=== PATIENT | female | born 1980 | race Two or more races ===

== ENCOUNTER 2018-09-09 13:42 | Emergency (ER) | payer SELFPAY | END 2018-09-09 14:23 | disposition left against medical advice (07) | LOC: JER 13:42 ==

== ENCOUNTER 2018-10-19 10:01 | Emergency (ER) | payer OTHER ==
[2018-10-19 10:20] VITALS: TEMP 98.3; BMI 23.9
[2018-10-19] MEDS ORDERED: METOCLOPRAMIDE HCL INJECTION 10 MG/2 ML VIAL IVPB ONE (12:28)
[2018-10-19] MEDS ORDERED: PYRIDOXINE HCL (B-6) 50 MG TABLET (FP) PO ONE (12:29)
[2018-10-19] MEDS ORDERED: METOCLOPRAMIDE HCL INJECTION 10 MG/2 ML VIAL ONE (12:37)
[2018-10-19 13:15] LABS: BASO % 0.2 % (0-2.0); EOS % 0.4 % (0-4.5); HEMOGLOBIN 9.9 GM/dL (10.7-15.3); LYMPH % 12.3 % (8-40); MCH 32.9 pg (25.7-33.7); MCHC 34.3 g/dl (32.0-36.0); MEAN CELL VOLUME 96.1 fl (80-96); MEAN PLT VOLUME 8.4 fl (7.5-11.1); MONO % 5.8 % (3.8-10.2); NEUT % 81.3 % (42.8-82.8); PLATELET COUNT 261 K/MM3 (134-434); RBC 3.02 M/mm3 (3.60-5.2); RDW 13.3 % (11.6-15.6); WHITE BLOOD COUNT 14.2 K/mm3 (4.0-10.0)
[2018-10-19 13:24] LABS: URINE APPEARANCE CLEAR; URINE BILIRUBIN NEGATIVE (NEGATIVE); URINE COLOR YELLOW; URINE GLUCOSE (UA) NEGATIVE (NEGATIVE); URINE KETONE 1+ (NEGATIVE); URINE LEUK ESTERASE NEGATIVE (NEGATIVE); URINE NITRITE NEGATIVE (NEGATIVE); URINE PROTEIN NEGATIVE (NEGATIVE); URINE UROBILINOGEN 0.2 mg/dL (0.2-1.0)
[2018-10-19 13:45] LABS: ALBUMIN 3.2 g/dl (3.4-5.0); ALK PHOS 88 U/L (45-117); ANION GAP 10 MMOL/L (8-16); BILIRUBIN,TOTAL 0.3 mg/dL (0.2-1); BLOOD UREA NITROGEN 6.3 mg/dL (7-18); CALCIUM 8.5 mg/dL (8.5-10.1); CHLORIDE 106 mmol/L (98-107); CO2 22 mmol/L (21-32); CREATININE 0.4 mg/dL (0.55-1.3); GLUCOSE,RANDOM 73 mg/dL (74-106); POTASSIUM 3.7 mmol/L (3.5-5.1); SGOT/AST 23 U/L (15-37); SGPT/ALT 40 U/L (13-61); SODIUM 138 mmol/L (136-145); TOT PROT 6.7 g/dl (6.4-8.2)
[2018-10-19 14:12] LABS: LIPASE 101 U/L (73-393)
--- NOTE | 2018-10-19 14:50 | EKG ---
Test Reason : Blood Pressure : / mmHG Vent. Rate : 086 BPM Atrial Rate : 086 BPM P-R Int : 122 ms QRS Dur : 080 ms QT Int : 382 ms P-R-T Axes : 070 052 051 degrees QTc Int : 457 ms NORMAL SINUS RHYTHM NORMAL ECG NO PREVIOUS ECGS AVAILABLE Confirmed by ROSAURA JOHNSON, ABA ([id number]) on 10/19/2018 2:49:51 PM Referred By: Confirmed By:ABA KAPLAN MD
--- NOTE | 2018-10-19 15:24 | PDOC ---
Documentation entered by Rut Webber SCRIBE, acting as scribe for Sarbjit Hays MD. Sarbjit Hays MD: This documentation has been prepared by the Akbar canada Sammi, SCRIBE, under my direction and personally reviewed by me in its entirety. I confirm that the documentation accurately reflects all work, treatment, procedures, and medical decision making performed by me. History of Present Illness - General Chief Complaint: Pain, Acute Stated Complaint: 18 WK PREG / NOT FEELING WELL Time Seen by Provider: 10/19/18 10:51 - History of Present Illness Initial Comments: 10/19/18 12:47 The patient is a 38 year old, 18 weeks with twins female, with a significant PMH of gastritis, who presents to the emergency department for evaluation of 2 days of epigastric pain. The patient states she woke up yesterday morning with upper abdominal pain, which was not relieved when going to the bathroom. She describes the pain as dull, intermittently feels like there is "twisting." Denies dark stools. She was evaluated at Dr. Haywood (OB) office yesterday afternoon where an ultrasound was taken of the that was reportedly normal. She was prescribed famotidine which she took yesterday with little relief. As such, she went to [facility] ER last night where an US and UA were done that did not show acute findings (report provided). They advised that the patient come to [place] if the pain persists as we have OB specialists here. This morning, she continued to feel the dull epigastric pain and poor appetite prompting her to come here. She reports that she typically has BM daily, but has not had a BM today. The patient also reports a gradual onset headache this morning that has resolved after taking Fioricet at 11am which she has been taking for similar headaches (prescribed by Dr. Haywood). Denies SOB, CP, fever, chills, abd pain, vomiting or diarrhea, focal weakness/ numbness, or dizziness. OB: Dr. Sylvia Haywood Past History - Past Medical History Allergies/Adverse Reactions: Allergies Allergy/AdvReac Type Severity Reaction Status Date / Time No Known Allergies Allergy Verified 09/09/18 13:49 Home Medications: Ambulatory Orders Famotidine [Pepcid] 20 mg PO ASDIR 07/10/19 COPD: No - Immunization History Immunization Up to Date: Yes - Suicide/Smoking/Psychosocial Hx Smoking History: Unknown if ever smoked Hx Alcohol Use: No Drug/Substance Use Hx: No Review of Systems - Review of Systems Comments:: 10/19/18 12:48 GENERAL/CONSTITUTIONAL: No fever or chills. No weakness. HEAD, EYES, EARS, NOSE AND THROAT: No change in vision. No ear pain or discharge. No sore throat. GASTROINTESTINAL: (+)epigastric pain GENITOURINARY: No dysuria, frequency, or change in urination. CARDIOVASCULAR: No chest pain or shortness of breath. RESPIRATORY: No cough, wheezing, or hemoptysis. MUSCULOSKELETAL: No joint or muscle swelling or pain. No neck or back pain. SKIN: No rash NEUROLOGIC: No headache, vertigo, loss of consciousness, or change in strength/ sensation. ENDOCRINE: No increased thirst. No abnormal weight change. *Physical Exam - Vital Signs Last Vital Signs Temp Pulse Resp BP Pulse Ox 98.3 F 103 H 20 125/76 96 10/19/18 10:16 10/19/18 10:16 10/19/18 10:16 10/19/18 10:16 10/19/18 10:16 - Physical Exam Comments: 10/19/18 13:43 GENERAL: Awake, alert, and fully oriented, in no acute distress HEAD: No signs of trauma EYES: PERRLA, EOMI, sclera anicteric, conjunctiva clear ENT:Oropharynx clear without exudates. Moist mucosa NECK: Normal ROM, supple, no lymphadenopathy, JVD, or masses LUNGS: Breath sounds equal, clear to auscultation bilaterally. No wheezes, and no crackles HEART: Regular rate and rhythm, normal S1 and S2, no murmurs, rubs or gallops ABDOMEN: (+)epigastric tenderness to palpation. Gravid uterus consistent with dates. No other ttp in LUQ, RUQ, LLQ or RLQ. No CVAT. No rebound or guarding. EXTREMITIES: Normal range of motion, no edema. No clubbing or cyanosis. No cords , erythema, or tenderness BACK: No midline spinal tenderness in cervical/thoracic/lumbar region NEUROLOGICAL: Normal speech, cranial nerves intact, equal strength and sensation b/l. Normal gait. SKIN: Warm, Dry, normal turgor, no rashes or lesions noted. Heart Score/ECG Review #1 10/19/18 15:19 Twelve-lead EKG was performed and reviewed by me. Normal sinus rhythm, rate 86. Normal axis and intervals. No ST elevations. ED Treatment Course - LABORATORY CBC & Chemistry Diagram: 10/19/18 12:49 10/19/18 12:49 - ADDITIONAL ORDERS Additional order review: Laboratory Results 10/19/18 10/19/18 12:49 12:49 Sodium 138 Potassium 3.7 Chloride 106 Carbon Dioxide 22 Anion Gap 10 BUN 6.3 L Creatinine 0.4 L Est GFR (CKD-EPI)AfAm 154.22 Est GFR (CKD-EPI)NonAf 133.06 Random Glucose 73 L Calcium 8.5 Magnesium 2.0 Total Bilirubin 0.3 AST 23 ALT 40 Alkaline Phosphatase 88 Troponin I < 0.02 Total Protein 6.7 Albumin 3.2 L Lipase 101 Urine Color Yellow Urine Appearance Clear Urine pH 7.0 Ur Specific [place] 1.011 Urine Protein Negative Urine Glucose (UA) Negative Urine Ketones 1+ H Urine Blood Negative Urine Nitrite Negative Urine Bilirubin Negative Urine Urobilinogen 0.2 Ur Leukocyte Esterase Negative 10/19/18 12:49 RBC 3.02 L MCV 96.1 H MCHC 34.3 RDW 13.3 MPV 8.4 Neutrophils % 81.3 Lymphocytes % 12.3 Monocytes % 5.8 Eosinophils % 0.4 Basophils % 0.2 - Medications Given in the ED: ED Medications Discontinued Medications Generic Name Dose Route Start Last Admin Trade Name Freq PRN Reason Stop Dose Admin Metoclopramide HCl 10 mg 10/19/18 12:28 10/19/18 13:29 Reglan Injection - IVPB 10/19/18 12:29 10 mg ONCE ONE Administration Pyridoxine HCl 50 mg 10/19/18 12:29 10/19/18 13:29 Vitamin B6 - PO 10/19/18 12:30 50 mg ONCE ONE Administration Medical Decision Making - Medical Decision Making 10/19/18 15:19 38yo F currently presents to the ED with dull epigastric abd pain a/w poor appetite and nausea Vitals with mild tachycardia likely 2/2 dehydration Mild epigastric ttp DDx includes gastritis vs GERD vs enteritis vs pancreatitis Labs wnl Pt reports complete resolution of sxs with reglan IVPB and PO B6 Pt ate tray of food, is happy and eager to go home Will prescribe B6 and reglan as needed at home Pt to f/u with OB within 1 week I discussed the physical exam findings, ancillary test results and final diagnoses with the patient. I answered all of the patient's questions. The patient was satisfied with the care received and felt comfortable with the discharge plan and treatment plan. The patient will call their primary care physician within 24 hours to arrange follow-up and will return to the Emergency Department with any new, persistent or worsening symptoms. *DC/Admit/Observation/Transfer Diagnosis at time of Disposition: Abdominal pain during , Gastritis, Anorexia - Discharge Dispostion Disposition: HOME Condition at time of disposition: Improved Decision to Admit order: No - Referrals Referrals: Sylvia Haywood MD [Primary Care Provider] - - Patient Instructions Printed Discharge Instructions: DI for Nausea -- Adult, DI for Epigastric Pain Additional Instructions: Take Vitamin B6 and reglan as needed twice a day for nausea and epigastric discomfort. Follow up with your OB doctor within 1 week Return to the emergency department if you have any new, worsening, or concerning symptoms - Post Discharge Activity - Attestations Physician Attestion: 10/19/18 15:24 I, Dr. Sarbjit Hays MD, attest that this document has been prepared under my direction and personally reviewed by me in its entirety. I further attest, that it accurately reflects all work, treatment, procedures and medical decision -making performed by me.
[2018-10-19 15:59] VITALS: BP 119/58; PULSE 62
== END 2018-10-19 15:55 | disposition home or self-care (01) ==
LOC: JER 10:01
PROC: 3E033GC Introduction of Other Therapeutic Substance into Peripheral Vein, Percutaneous Approach (ICD-10-PCS; principal; 2018-10-19)
DX: O30.002 Twin pregnancy, unspecified number of placenta and unspecified number of amniotic sacs, second trimester (principal); Z3A.18 18 weeks gestation of pregnancy; R10.9 Unspecified abdominal pain; R63.0 Anorexia; K29.70 Gastritis, unspecified, without bleeding
CPT/HCPCS: 36415; 80053; 81003; 83690; 83735; 84484; 85025; 87086; 93005; 93010; 99283-25

== ENCOUNTER 2018-11-20 21:37 | Emergency (ER) | payer OTHER ==
[2018-11-20 22:15] VITALS: TEMP 98.7; BMI 26.0
[2018-11-20] MEDS ORDERED: SODIUM CHLORIDE 0.9% 500 ML INFUS.BAG IV ONE (22:19)
[2018-11-20] MEDS ORDERED: MAG HYDROX/AL HYDROX/SIMETH 30 ML UNIT-DOSE CUP PO ONE (22:19)
[2018-11-20] MEDS ORDERED: FAMOTIDINE 20 MG/50 ML IVPB 20 MG/50 ML MG IVPB ONE ×2 (22:19→23:09)
[2018-11-20] MEDS ORDERED: METOCLOPRAMIDE HCL INJECTION 10 MG/2 ML VIAL IVPUSH ONE (22:19)
[2018-11-20] MEDS ORDERED: DEXTROSE 5%-NORMAL SALINE 1,000 ML IV ONE (22:20)
[2018-11-20] MEDS ORDERED: MAG HYDROX/AL HYDROX/SIMETH 30 ML UNIT-DOSE CUP ONE (23:08)
[2018-11-20] MEDS ORDERED: MORPHINE SULFATE 2 MG/ML VIAL ONE (23:08)
[2018-11-20] MEDS ORDERED: METOCLOPRAMIDE HCL INJECTION 10 MG/2 ML VIAL ONE (23:08)
[2018-11-20 23:12] LABS: BASO % 0.1 % (0-2.0); EOS % 0.6 % (0-4.5); HEMATOCRIT 27.6 % (32.4-45.2); HEMOGLOBIN 9.5 GM/dL (10.7-15.3); LYMPH % 11.7 % (8-40); MCH 33.7 pg (25.7-33.7); MCHC 34.4 g/dl (32.0-36.0); MEAN CELL VOLUME 97.9 fl (80-96); MEAN PLT VOLUME 9.1 fl (7.5-11.1); MONO % 6.1 % (3.8-10.2); NEUT % 81.5 % (42.8-82.8); PLATELET COUNT 246 K/MM3 (134-434); RBC 2.82 M/mm3 (3.60-5.2); RDW 13.5 % (11.6-15.6); WHITE BLOOD COUNT 14.6 K/mm3 (4.0-10.0)
[2018-11-20] MEDS ORDERED: morphine CARPU-JECT 2 MG/1 ML DISP.SYRIN IVPUSH ONE (23:18)
[2018-11-20 23:26] LABS: INR 1.04 (0.83-1.09); PROTHROMBIN TIME (PATIENT) 12.3 SEC (9.7-13.0)
[2018-11-20 23:33] LABS: AMYLASE 62 U/L (25-115); LIPASE 117 U/L (73-393)
[2018-11-20 23:35] LABS: BILIRUBIN,TOTAL 0.3 mg/dL (0.2-1); BLOOD UREA NITROGEN 7.6 mg/dL (7-18); CALCIUM 8.4 mg/dL (8.5-10.1); CREATININE 0.4 mg/dL (0.55-1.3); POTASSIUM 3.5 mmol/L (3.5-5.1); TOT PROT 6.3 g/dl (6.4-8.2)
--- NOTE | 2018-11-20 23:55 | PDOC ---
Documentation entered by Lorenzo Maria SCRIBE, acting as scribe for Latrice Victoria MD. Latrice Victoria MD: This documentation has been prepared by the Crow canada Daniel, SCRIBE, under my direction and personally reviewed by me in its entirety. I confirm that the documentation accurately reflects all work, treatment, procedures, and medical decision making performed by me. History of Present Illness - General Chief Complaint: Pain Stated Complaint: ABDOMINAL PAIN Time Seen by Provider: 11/20/18 22:07 History Source: Patient Exam Limitations: No Limitations - History of Present Illness Initial Comments: 11/20/18 22:21 The patient is a 38 year old A1 female with a past medical history of gastritis here today for evaluation of abdominal pain. The patient reports that she is 5 months and initially presented to [facility] but was transferred here. Patient states that she has diffuse abdominal pain and is unable to eat or drink due to the pain. She also notes scattered macular lesions on her right upper arm and trunk. Patient denies headache, lightheadedness. Denies fever, chills. Denies chest pain, shortness of breath. Denies nausea, vomiting, diarrhea. Allergies: NKA Past History - Past Medical History Allergies/Adverse Reactions: Allergies Allergy/AdvReac Type Severity Reaction Status Date / Time No Known Allergies Allergy Verified 11/20/18 18:08 Home Medications: Ambulatory Orders Famotidine [Pepcid] 20 mg PO ASDIR 10/19/18 Metoclopramide HCl [Reglan -] 10 mg PO Q12H #10 tablet 10/19/18 Pyridoxine HCl (Vitamin B6) [Vitamin B-6] 50 mg PO BID PRN #10 tablet 10/19/18 One Daily Tablet 1 tab PO DAILY 11/20/18 COPD: No - Immunization History Immunization Up to Date: Yes - Suicide/Smoking/Psychosocial Hx Smoking History: Unknown if ever smoked Hx Alcohol Use: No Drug/Substance Use Hx: No Review of Systems - Review of Systems Able to Perform ROS?: Yes Comments:: 11/20/18 22:22 GENERAL/CONSTITUTIONAL: No fever or chills. No weakness. HEAD, EYES, EARS, NOSE AND THROAT: No change in vision. No ear pain or discharge. No sore throat. CARDIOVASCULAR: No chest pain or shortness of breath. RESPIRATORY: No cough, wheezing, or hemoptysis. GASTROINTESTINAL: +abdominal pain. No nausea, vomiting, diarrhea or constipation. GENITOURINARY: No dysuria, frequency, or change in urination. MUSCULOSKELETAL: No joint or muscle swelling or pain. No neck or back pain. SKIN: +scattered macular lesions. NEUROLOGIC: No headache, vertigo, loss of consciousness, or change in strength/ sensation. ENDOCRINE: No increased thirst. No abnormal weight change. HEMATOLOGIC/LYMPHATIC: No anemia, easy bleeding, or history of blood clots. ALLERGIC/IMMUNOLOGIC: No hives or skin allergy. *Physical Exam - Vital Signs Last Vital Signs Temp Pulse Resp BP Pulse Ox 98.7 F 98 H 19 118/61 100 11/20/18 22:12 11/20/18 22:12 11/20/18 22:12 11/20/18 22:12 11/20/18 22:12 - Physical Exam Comments: 11/20/18 22:22 GENERAL: Awake, alert, and fully oriented, in no acute distress HEAD: No signs of trauma EYES: PERRLA, EOMI, sclera anicteric, conjunctiva clear ENT: Auricles normal inspection, hearing grossly normal, nares patent, oropharynx clear without exudates. Moist mucosa NECK: Normal ROM, supple, no lymphadenopathy, JVD, or masses LUNGS: Breath sounds equal, clear to auscultation bilaterally. No wheezes, and no crackles HEART: Regular rate and rhythm, normal S1 and S2, no murmurs, rubs or gallops ABDOMEN: Soft, nontender, normoactive bowel sounds. No guarding, no rebound. No masses EXTREMITIES: Normal range of motion, no edema. No clubbing or cyanosis. No cords, erythema, or tenderness NEUROLOGICAL: Cranial nerves II through XII grossly intact. Normal speech, normal gait SKIN: +macular lesions on right upper arm and trunk with scattered lesions on right lower arm, some lesions are blanching and are 2 mm in diameter. Warm, Dry , normal turgor. ED Treatment Course - LABORATORY CBC & Chemistry Diagram: 11/20/18 23:00 11/20/18 23:00 - ADDITIONAL ORDERS Additional order review: Laboratory Results 11/20/18 11/20/18 11/20/18 23:00 23:00 23:00 WBC RBC Hgb Hct MCV MCH MCHC RDW Plt Count MPV Absolute Neuts (auto) Neutrophils % Lymphocytes % Monocytes % Eosinophils % Basophils % Nucleated RBC % PT with INR 12.30 INR 1.04 Sodium 138 Potassium 3.5 Chloride 105 Carbon Dioxide 23 Anion Gap 10 BUN 7.6 Creatinine 0.4 L Est GFR (CKD-EPI)AfAm 154.22 Est GFR (CKD-EPI)NonAf 133.06 Random Glucose 75 Calcium 8.4 L Total Bilirubin 0.3 AST 19 ALT 34 Alkaline Phosphatase 117 Total Protein 6.3 L Albumin 3.0 L Total Amylase Lipase Cancelled 11/20/18 11/20/18 23:00 23:00 WBC 14.6 H RBC 2.82 L Hgb 9.5 L Hct 27.6 L MCV 97.9 H MCH 33.7 MCHC 34.4 RDW 13.5 Plt Count 246 MPV 9.1 Absolute Neuts (auto) 11.9 H Neutrophils % 81.5 Lymphocytes % 11.7 Monocytes % 6.1 Eosinophils % 0.6 Basophils % 0.1 Nucleated RBC % 0 PT with INR INR Sodium Potassium Chloride Carbon Dioxide Anion Gap BUN Creatinine Est GFR (CKD-EPI)AfAm Est GFR (CKD-EPI)NonAf Random Glucose Calcium Total Bilirubin AST ALT Alkaline Phosphatase Total Protein Albumin Total Amylase 62 Lipase 117 11/20/18 23:00 RBC 2.82 L MCV 97.9 H MCHC 34.4 RDW 13.5 MPV 9.1 Neutrophils % 81.5 Lymphocytes % 11.7 Monocytes % 6.1 Eosinophils % 0.6 Basophils % 0.1 - Medications Given in the ED: ED Medications Discontinued Medications Generic Name Dose Route Start Last Admin Trade Name Chuckyq PRN Reason Stop Dose Admin Al Hydroxide/Mg Hydroxide 30 ml 11/20/18 22:19 11/20/18 23:17 Mylanta Oral Suspension - PO 11/20/18 22:20 30 ml ONCE ONE Administration Famotidine/Sodium Chloride 20 mg in 50 mls @ 100 mls/hr 11/20/18 22:19 23:17 Pepcid 20 Mg Premixed Ivpb - IVPB 11/20/18 22:48 100 mls/hr ONCE ONE Administration Metoclopramide HCl 10 mg 11/20/18 22:19 11/20/18 23:17 Reglan Injection - IVPUSH 11/20/18 22:20 10 mg ONCE ONE Administration Morphine Sulfate 1 mg 11/20/18 23:18 11/20/18 23:23 Morphine Injection - IVPUSH 11/20/18 23:19 1 mg ONCE ONE Administration Sodium Chloride 1,000 ml 11/20/18 22:19 11/20/18 22:30 Normal Saline - IV 11/20/18 22:20 1,000 ml ONCE ONE Administration Medical Decision Making - Medical Decision Making 11/21/18 00:01 Pt feels great and she is eating and she states that she needs to leave now, as her has to go to work and is here to pick her up. Pt was hydrated with 1L NSS. Pt gave urine upstairs when she was at L+D and she had a positive utox. She states that she doesn't want to give more urine at this time. She has appt with vegetable trimmer in 3 days. She will be discharged *DC/Admit/Observation/Transfer Diagnosis at time of Disposition: Hyperemesis gravidarum - Discharge Dispostion Disposition: HOME Condition at time of disposition: Improved Decision to Admit order: No - Referrals Referrals: Sylvia Haywood MD [Primary Care Provider] - - Patient Instructions Printed Discharge Instructions: DI for Hyperemesis Gravidarum - Post Discharge Activity
[2018-11-21 00:11] VITALS: BP 131/76; PULSE 101
== END 2018-11-21 00:05 | disposition home or self-care (01) ==
LOC: JER 21:37
PROC: 3E033NZ Introduction of Analgesics, Hypnotics, Sedatives into Peripheral Vein, Percutaneous Approach (ICD-10-PCS; principal; 2018-11-20)
PROC: 3E0337Z Introduction of Electrolytic and Water Balance Substance into Peripheral Vein, Percutaneous Approach (ICD-10-PCS; 2018-11-20)
PROC: 3E033GC Introduction of Other Therapeutic Substance into Peripheral Vein, Percutaneous Approach (ICD-10-PCS; 2018-11-20)
DX: O21.0 Mild hyperemesis gravidarum (principal); Z3A.20 20 weeks gestation of pregnancy
CPT/HCPCS: 36415; 80053; 82150; 83690; 85025; 85610; 99283-25

== ENCOUNTER 2019-03-13 10:00 | Inpatient (IN) | payer OTHER ==
[2019-03-13] MEDS ORDERED: CITRIC ACID/SODIUM CITRATE 30 ML UNIT-DOSE CUP PO ONE (10:28)
[2019-03-13] MEDS: ELECTROLYTE-148 SOLN 1,000 ML IV SCH (10:30)
--- NOTE | 2019-03-13 10:35 | HP ---
Past Medical History - Admission History of Present Illness: 38yo @ 38+wks by LMP c/w vick, MERRICK 03/21/2016 here for scheduled RLTCS and BTL for twins, No VB/LOF. Occ ctx. +FM x 2. 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: Alzheimer's, CVA, Dementia, Migraine, Multiple Sclerosis, Peripheral Neuropathy, Parkinson's, Seizure, Syncope, TIA, Vertigo, Other Cardiovascular: No: AFIB, Aneurysm, Aortic Insufficiency, Aortic Stenosis, CAD, CHF, Deep Vein Thrombosis, HTN, Hyperlipdemia, [place], Mitral Insufficiency, Mitral Stenosis, Murmur, Pulmonary Hypertension, Other Pulmonary: No: Asthma, Bronchitis, Cancer, COPD, O2 Dependent, Pneumonia, Previously Intubated, Pulmonary Embolus, Pulmonary Fibrosis, Sleep Apnea, Other Gastrointestinal: No: Ascites, Cancer, Constipation, Crohn's Disease, Diverticulitis, Diverticulosis, Esophageal Varices, Gastritis, GERD, GI Bleed, Hemorrhoids, Hiatal Hernia, Inflamatory Bowel Disease, Irritable Bowel Disease, Pancreatitis, Peptic Ulcer Disease, Ulcerative Colitis, Other Hepatobiliary: No: Cirrhosis, Cholelithiasis, Cholecystitis, Choledocholithiasis , Hepatitis A, Hepatitis B, Hepatitis C, Other Renal/: No: Renal Failure, Renal Inusuff, BPH, Cancer, Hematuria, Hemodialysis , Neurogenic Bladder, Renal Calculi, UTI, Other ...Para: 2 ...Term: 2 ...: 0 ...EDC by Dates: 03/21/19 ...EDC by Sono: 03/17/19 Heme/Onc: Yes: Anemia Infectious Disease: No: AIDS, C-Diff, Herpes Zoster, HIV, MRSA, STD's, Tuberculosis, VREF, Other Psych: No: Addictions, Anxiety, Bipolar, Depression, Panic, Psychosis, Schizophrenia, Other Musculoskeletal: No: Bursitis, Chronic low back pain, Hemiparesis, Hemiplegia, Osteoarthritis, Paraplegia, Other Rheumatology: No: Fibromyalgia, Gout, Lupus, Rheumatoid Arthritis, Sarcoidosis, Vasculitis, Other ENT: No: Allergic Rhinitis, Sinusitis, Other Endocrine: No: [place]'s Disease, [place]'s Disease, Diabetes Insipidus, Diabetes Mellitus, Hyperparathyroidism, Hyperthyroidism, Hypothyroidism, Osteopenia, SIADH, Other - Past Surgical History Past Surgical History: Yes: Hx Myomectomy: No Hx Transabdominal Cerclage: No - Smoking History Smoking history: Unknown if ever smoked - Alcohol/Substance Use Hx Alcohol Use: No History of Substance Use: reports: Marijuana - Social History Usual Living Arrangement: Yes: With Spouse Do you think of yourself as: Straight/Heterosexual ADL: Independent History of Recent Travel: No Home Medications - Allergies Allergies/Adverse Reactions: Allergies Allergy/AdvReac Type Severity Reaction Status Date / Time No Known Allergies Allergy Verified 11/20/18 18:08 - Home Medications Home Medications: Ambulatory Orders Famotidine [Pepcid] 20 mg PO ASDIR 10/19/18 Metoclopramide HCl [Reglan -] 10 mg PO Q12H #10 tablet 10/19/18 Pyridoxine HCl (Vitamin B6) [Vitamin B-6] 50 mg PO BID PRN #10 tablet 10/19/18 One Daily Tablet 1 tab PO DAILY 11/20/18 Review of Systems - Review of Systems Constitutional: denies: No Symptoms, Chills, Diaphoresis, Fever, Lethargy, Loss of Appetite, Malaise, Night Sweats, Unintentional Wgt. Loss, Weakness, Other Cardiovascular: denies: No Symptoms, Chest Pain, Edema, Palpitations, Shortness of Breath, Other Respiratory: denies: No Symptoms, Cough, Exercise Intolerance, Hemoptysis, Orthopnea, PND, Snoring, SOB, SOB on Exertion, Wheezing, Other Gastrointestinal: denies: No Symptoms, Abdominal Pain, Bloating, Constipation, Diarrhea, Dysphagia, Indigestion, Melena, Nausea, Rectal Bleeding, Vomiting, Vomiting Blood, Other Physical Exam - Maternity - Abdominal Exam/OB Number of Fetuses: Multiple Presentation: Vertex, Other (Vertex/Breech) Contractions: Yes Regularity: Irregular Intensity: Mild Monitor Mode: External Category: I Accelerations: Non-Uniform Decelerations: None - Vaginal Exam/OB Vaginal Bleediing: No Speculum Exam: No - Physical Exam Edema: No Problem List - Problems (1) Monochorionic diamniotic twin gestation in third trimester Code(s): O30.033 - TWIN , MONOCHORIONIC/DIAMNIOTIC, THIRD TRIMESTER Assessment/Plan 35yo @ 38.6wks here for scheduled RLTCS Admit to L&D NPO, IVFs Labs, including Utox SCDs Abdiel Declined MAAME for the twins and requested RLTCS. Risks reviewed, all questions answered. Proceed to OR for RLTCS, BTL Raudel Haywood MD
[2019-03-13 11:04] LABS: BASO % 0.4 % (0-2.0); EOS % 0.3 % (0-4.5); HEMATOCRIT 31.6 % (32.4-45.2); HEMOGLOBIN 10.7 GM/dL (10.7-15.3); MCH 32.5 pg (25.7-33.7); MCHC 33.9 g/dl (32.0-36.0); MEAN CELL VOLUME 95.7 fl (80-96); MONO % 5.3 % (3.8-10.2); PLATELET COUNT 200 K/MM3 (134-434); RDW 13.7 % (11.6-15.6); WHITE BLOOD COUNT 8.9 K/mm3 (4.0-10.0)
[2019-03-13 11:18] VITALS: BMI 26.5
[2019-03-13 11:21] LABS: INR 0.91 (0.83-1.09); PROTHROMBIN TIME (PATIENT) 10.7 SEC (9.7-13.0)
[2019-03-13 11:24] LABS: ACTIVATED PTT 26.9 SECONDS (25.2-36.5)
[2019-03-13 11:27] LABS: CALCIUM 8.7 mg/dL (8.5-10.1); CREATININE 0.6 mg/dL (0.55-1.3); POTASSIUM 4.2 mmol/L (3.5-5.1)
[2019-03-13] MEDS ORDERED: OXYTOCIN 20 UNITS in 0.9% NS 20 UNIT/1,000 ML INFUS.BAG IV ONE (13:37)
[2019-03-13] MEDS ORDERED: morphine SULFATE/PF 0.5 MG/ML (2cc Syringe - QUVA) ONE (13:40)
[2019-03-13] MEDS ORDERED: ePHEDrine SULFATE 50 MG/1 ML AMPULE ONE (13:41)
[2019-03-13] MEDS ORDERED: ceFAZolin SODIUM 1 GM VIAL ONE (13:45)
[2019-03-13] MEDS ORDERED: METHYLERGONOVINE MALEATE 0.2 MG/1 ML AMP IM PRN (14:37)
[2019-03-13] MEDS ORDERED: oxyCODONE HCL 5 MG TABLET PO PRN (14:37)
--- NOTE | 2019-03-13 14:39 | OP ---
Operative Note - Note: Operative Date: 03/13/19 Operation: Repeat Low Transverse , Bilateral Tubal Ligation Findings: Baby A: VFI, cephalic, 6.1lbs, Apgars 9/9 Baby B: VFI, jah breech, 5.4lbs, A pgars 12/19 Normal tubes and ovaries Post-Operative Diagnosis: Same as Pre-op Surgeon: Sylvia Haywood Entry Level Drafter: Flores Thomas Anesthesia: Spinal Estimated Blood Loss (mls): 1,100 Drains, Volume Out (mls): 200 (clear urine) Operative Report Dictated: Yes
[2019-03-13] MEDS ORDERED: ONDANSETRON 4 MG/2 ML VIAL IVPUSH PRN (14:48)
[2019-03-13 15:14] LABS: COCAINE, UR NEGATIVE ng/ml (CUTOFF=300); METHADONE, UR NEGATIVE ng/ml (CUTOFF=300); OPIATES, URI NEGATIVE ng/ml (CUTOFF=300); PHENCYCLIDINE,URINE NEGATIVE ng/ml (CUTOFF=25); URINE AMPHETAMINES NEGATIVE ng/ml (CUTOFF=500); URINE BARBITURATES NEGATIVE ng/ml (CUTOFF=200); URINE BENZODIAZEPINES NEGATIVE ng/ml (CUTOFF=200)
[2019-03-13] MEDS: FERROUS SO4 325 MG TABLET (FP) PO SCH (17:53)
[2019-03-13] MEDS: OXYTOCIN 20 UNITS in 0.9% NS 20 UNIT/1,000 ML INFUS.BAG IV SCH (17:54)
[2019-03-13] MEDS: ACETAMINOPHEN 325 MG TABLET (FP) PO PRN ×2 (18:00→22:02)
[2019-03-13] MEDS: SIMETHICONE 80 MG TAB.CHEW (FP) PO PRN ×2 (18:01→22:02)
[2019-03-13] MEDS: IBUPROFEN 600 MG TABLET (FP) PO PRN ×2 (18:01→22:02)
[2019-03-14] MEDS: ACETAMINOPHEN 325 MG TABLET (FP) PO PRN ×4 (02:01→13:45)
[2019-03-14] MEDS: IBUPROFEN 600 MG TABLET (FP) PO PRN ×6 (02:01→22:11)
[2019-03-14] MEDS: SIMETHICONE 80 MG TAB.CHEW (FP) PO PRN ×2 (02:01→06:10)
--- NOTE | 2019-03-14 08:21 | PN ---
Progress Note, Physician Chief Complaint: s/p c section post op day one History of Present Illness: duramorph for post op pain control, under spinal anesthesia - Current Medication List Current Medications: Active Medications Acetaminophen (Tylenol -) 650 mg PO Q4H PRN PRN Reason: FEVER Last Admin: 03/14/19 06:11 Dose: 650 mg Bisacodyl (Dulcolax Suppository -) 10 mg RC PRN PRN PRN Reason: CONSTIPATION Diphenhydramine HCl (Benadryl Injection -) 25 mg IVPUSH Q4H PRN PRN Reason: Pruritis Ferrous Sulfate (Feosol -) 325 mg PO BIDWM [facility] Last Admin: 03/13/19 17:53 Dose: Not Given Parenteral Electrolytes (Plasma-Lyte 148 -) 1,000 mls @ 125 mls/hr IV ASDIR [facility] Last Admin: 03/13/19 10:30 Dose: 125 mls/hr Oxytocin/Sodium Chloride (Normal Saline+20 Units Oxytocin -) 20 unit in 1,000 mls @ 125 mls/hr IV ASDIR [facility] Last Admin: 03/13/19 17:54 Dose: 125 mls/hr Ibuprofen (Motrin -) 600 mg PO Q4H PRN PRN Reason: PAIN LEVEL 1 - 3 Last Admin: 03/14/19 06:10 Dose: 600 mg Methylergonovine Maleate (Methergine Injection -) 0.2 mg IM Q4H PRN PRN Reason: Excessive Bleeding (L&D) Ondansetron HCl (Zofran Injection) 4 mg IVPUSH Q4H PRN PRN Reason: NAUSEA Oxycodone HCl (Roxicodone -) 5 mg PO Q4H PRN PRN Reason: PAIN LEVEL 4 - 6 Stop: 03/14/19 14:36 Multivit/Folic Acid/Iron ( Vitamins (Sjr) -) 1 tab PO DAILY [facility] Simethicone (Mylicon -) 80 mg PO Q4H PRN PRN Reason: GAS Last Admin: 03/14/19 06:10 Dose: 80 mg - Objective Vital Signs: Vital Signs Temperature 98.5 F 03/14/19 05:00 Pulse Rate 74 03/14/19 05:00 Respiratory Rate 20 03/14/19 06:00 Blood Pressure 109/57 L 03/14/19 05:00 O2 Sat by Pulse Oximetry (%) 100 03/13/19 15:30 Constitutional: Yes: Well Nourished Cardiovascular: Yes: WNL Respiratory: Yes: WNL Gastrointestinal: Yes: WNL Labs: CBC, BMP 03/13/19 10:50 03/13/19 10:50 INR, PTT INR 0.91 (0.83-1.09) 03/13/19 10:50 Assessment/Plan no acute issues, dept of anesthesia will sign off care at this time
--- NOTE | 2019-03-14 08:48 | OP ---
DATE OF OPERATION: 03/13/2019 DATE OF DICTATION: 03/13/2019 PREOPERATIVE DIAGNOSIS: A 38-week , prior delivery, diamniotic dichorionic twin , desires elective repair. POSTOPERATIVE DIAGNOSIS: A 38-week , prior delivery, diamniotic dichorionic twin , desires elective repair. PROCEDURE: Repeat low transverse section, bilateral tubal ligation. SURGEON: Sylvia Haywood MD CENTER REP: SALOMON Lomas ANESTHESIA: Spinal. IV FLUIDS: Per anesthesia record. ESTIMATED BLOOD LOSS: 1000. URINE OUTPUT: 200 mL of clear urine. FINDINGS: Viable female infant, cephalic presentation. Weight 6 pounds 1 ounce. Apgars 9, 9. Baby B, viable female , jah breech presentation. Weight 5 pounds 4 ounces. Apgars 9, 9. Normal tubes and ovaries bilaterally. COMPLICATIONS: None. CONDITION: Stable to recovery room. NATURE OF THE PROCEDURE: After the appropriate consents were signed, the patient was taken to the operating room where spinal anesthesia was administered. A sterile Meadows catheter was inserted. The abdomen was prepped and draped in a normal sterile fashion. Pfannenstiel incision was made through the previous incision and carried through to the underlying layers until the fascia was nicked in the midline. The fascia was then extended laterally with the Collado scissors. Inferior aspect of the fascia was grasped with the Marjan clamps, tented upward, and the rectus muscle was dissected off bluntly with the Collado scissors. Attention was paid to the superior aspect, which was taken down in a similar fashion. Rectus muscles were dissected in the midline. The peritoneum was entered bluntly. Bladder blade was inserted. Bladder flap was created with the Metzenbaum scissors and digitally. Bladder blade was reinserted. The uterus was incised in a low transverse fashion. Clear amniotic fluid was noted. The infant's head was delivered without difficulty as were remaining shoulder and body. Cord was clamped and cut, and the infant was handed off to the awaiting NICU staff. The 2nd amniotic sac was then ruptured with an Allis clamp. 's feet were grasped. The was delivered in the typical breech fashion. Delivery of the head was without difficulty. Cord was also then clamped and cut. The was then handed off to the awaiting pediatric staff. Placentas were then removed manually. The uterus was cleared of all clot and debris. The uterus was exteriorized. The hysterotomy was closed in a single vertical imbricating layer with a 1-0 Vicryl with good hemostasis. Attention was then paid to the tubal sterilization. The patient's right fallopian tube was grasped with a Delilah. Noted to be normal throughout the fimbriated edges in the isthmic portion of the tube. The fallopian tube was suture ligated in the modified Axson fashion with a 0 plain. Tubal stump was removed with the Metzenbaum scissors, and stumps were made hemostatic with the cautery. Attention was then paid to the patient's left fallopian tube, which was then also taken down in a modified Axson fashion without difficulty. The stumps were noted to be hemostasis. The uterus was then returned to the abdominal cavity. The hysterotomy was noted to be hemostatic. The adnexa were inspected. Both tubal stumps were noted to be hemostatic. The rectus muscles were then closed with a 2-0 chromic. The fascia was closed with a 0 Vicryl. Subcutaneous tissue was closed with a 1-0 Vicryl. The skin was closed with 3-0 Biosyn. Sponge, lap, needle counts were correct x3. The patient did receive Ancef at the start of the procedure. She was taken from the operating room to the recovery area in stable condition. MD ALISA FIGUEROA/[id number]
--- NOTE | 2019-03-14 09:01 | SURG ---
Surgery Food Services Coordinator Note Food Services Coordinator: Flores Thomas PA-C (Suzy) Date of Service: 03/14/19 Diagnosis: Full term, twin gestation Procedure: Repeat Low Transverse , Bilateral Tubal Ligation I was present for the entirety of the operative procedure. For further detail, please refer to operative report. Visit type - Case Type Case Type: Scheduled - Emergency Emergency Visit: No - New patient This patient is new to me today: Yes Date on this admission: 03/14/19 - Critical Care Critical Care patient: No
--- NOTE | 2019-03-14 09:07 | PN ---
Post Progress Note - Subjective Subjective: 38 yo Para 3 status post repeat , seen and evaluated. Doing well Post Day: 1 Type of Delivery: Repeat C/S Vital Signs: Vital Signs Temperature 98.5 F 03/14/19 05:00 Pulse Rate 74 03/14/19 05:00 Respiratory Rate 20 03/14/19 06:00 Blood Pressure 109/57 L 03/14/19 05:00 O2 Sat by Pulse Oximetry (%) 100 03/13/19 15:30 Breast Exam: Yes: Soft Uterus: Yes: Fundus @ umbilicus Incision: Yes: Dressing dry and intact Abdomen/GI: Yes: Abdomen soft Lochia: Yes: Rubra Lochia, amount: Small Extremities: Yes: Calves non-tender Perineum: Yes: Intact Activity: Other (She's lying in bed) - Labs Labs: CBC WBC 8.9 K/mm3 (4.0-10.0) 03/13/19 10:50 RBC 3.30 M/mm3 (3.60-5.2) L 03/13/19 10:50 Hgb 10.7 GM/dL (10.7-15.3) 03/13/19 10:50 Hct 31.6 % (32.4-45.2) L 03/13/19 10:50 MCV 95.7 fl (80-96) 03/13/19 10:50 MCH 32.5 pg (25.7-33.7) 03/13/19 10:50 MCHC 33.9 g/dl (32.0-36.0) 03/13/19 10:50 RDW 13.7 % (11.6-15.6) 03/13/19 10:50 Plt Count 200 K/MM3 (134-434) 03/13/19 10:50 MPV 10.0 fl (7.5-11.1) 03/13/19 10:50 Absolute Neuts (auto) 7.2 K/mm3 (1.5-8.0) 03/13/19 10:50 Neutrophils % 81.0 % (42.8-82.8) 03/13/19 10:50 Lymphocytes % 13.0 % (8-40) 03/13/19 10:50 Monocytes % 5.3 % (3.8-10.2) 03/13/19 10:50 Eosinophils % 0.3 % (0-4.5) 03/13/19 10:50 Basophils % 0.4 % (0-2.0) D 03/13/19 10:50 Nucleated RBC % 0 % (0-0) 03/13/19 10:50 Problem List - Problems (1) Status post repeat low transverse section Problems reviewed: Yes Code(s): Z98.891 - HISTORY OF UTERINE SCAR FROM PREVIOUS SURGERY Assessment/Plan Status post primary Ambulation Analgesia as needed Continue routine post op care
[2019-03-14 09:11] LABS: BASO % 0.1 % (0-2.0); EOS % 0.2 % (0-4.5); HEMATOCRIT 26.5 % (32.4-45.2); LYMPH % 7.3 % (8-40); MCH 32.3 pg (25.7-33.7); MEAN CELL VOLUME 95.2 fl (80-96); MEAN PLT VOLUME 9.9 fl (7.5-11.1); MONO % 8.9 % (3.8-10.2); NEUT % 83.5 % (42.8-82.8); PLATELET COUNT 167 K/MM3 (134-434); RBC 2.79 M/mm3 (3.60-5.2); RDW 13.5 % (11.6-15.6); WHITE BLOOD COUNT 13.3 K/mm3 (4.0-10.0)
[2019-03-14] MEDS: PRENATAL VITAMINS W/ FOLIC ACID TABLET (FP) PO SCH (10:04)
[2019-03-14] MEDS: FERROUS SO4 325 MG TABLET (FP) PO SCH ×2 (10:04→17:12)
[2019-03-14] MEDS ORDERED: BISACODYL 10 MG SUPP.RECT RC PRN (14:37)
[2019-03-14] MEDS: oxyCODONE HCL 5 MG TABLET PO PRN ×2 (17:12→22:10)
[2019-03-14] MEDS: ELECTROLYTE-148 SOLN 1,000 ML IV SCH (22:21)
[2019-03-14] MEDS: OXYTOCIN 20 UNITS in 0.9% NS 20 UNIT/1,000 ML INFUS.BAG IV SCH (22:22)
[2019-03-15] MEDS: SIMETHICONE 80 MG TAB.CHEW (FP) PO PRN ×3 (00:58→19:21)
[2019-03-15] MEDS: IBUPROFEN 600 MG TABLET (FP) PO PRN ×4 (02:19→19:21)
[2019-03-15] MEDS: oxyCODONE HCL 5 MG TABLET PO PRN ×4 (02:20→19:21)
--- NOTE | 2019-03-15 05:59 | PN ---
Post Progress Note - Subjective Subjective: c/o pain scale 7-9/10 voiding without difficulty bm not done Post Day: 2 Type of Delivery: Repeat C/S Vital Signs: Vital Signs Temperature 98.3 F 03/14/19 21:46 Pulse Rate 85 03/14/19 21:46 Respiratory Rate 20 03/14/19 13:24 Blood Pressure 132/76 03/14/19 21:46 O2 Sat by Pulse Oximetry (%) 100 03/13/19 15:30 Breast Exam: Yes: Soft, Other (not BF , bottle feeding ). No: Engorged Uterus: Yes: Fundus Firm, Fundus below umbilicus, Non-tender Incision: Yes: Sutures intact. No: Dressing dry and intact (dressing removed ) , Redness, Oozing Abdomen/GI: Yes: Abdomen soft, Abdominal Distention (mild, BS active ), Passing flatus, Tolerating PO (diet) Lochia: Yes: Rubra Lochia, amount: Moderate Extremities: Yes: Calves non-tender. No: Edema Perineum: Yes: Intact Activity: Ambulating - Labs Labs: CBC WBC 13.3 K/mm3 (4.0-10.0) H 03/14/19 08:40 RBC 2.79 M/mm3 (3.60-5.2) L 03/14/19 08:40 Hgb 9.0 GM/dL (10.7-15.3) L 03/14/19 08:40 Hct 26.5 % (32.4-45.2) L D 03/14/19 08:40 MCV 95.2 fl (80-96) 03/14/19 08:40 MCH 32.3 pg (25.7-33.7) 03/14/19 08:40 MCHC 34.0 g/dl (32.0-36.0) 03/14/19 08:40 RDW 13.5 % (11.6-15.6) 03/14/19 08:40 Plt Count 167 K/MM3 (134-434) 03/14/19 08:40 MPV 9.9 fl (7.5-11.1) 03/14/19 08:40 Absolute Neuts (auto) 11.1 K/mm3 (1.5-8.0) H 03/14/19 08:40 Neutrophils % 83.5 % (42.8-82.8) H 03/14/19 08:40 Lymphocytes % 7.3 % (8-40) L D 03/14/19 08:40 Monocytes % 8.9 % (3.8-10.2) 03/14/19 08:40 Eosinophils % 0.2 % (0-4.5) 03/14/19 08:40 Basophils % 0.1 % (0-2.0) 03/14/19 08:40 Nucleated RBC % 0 % (0-0) 03/14/19 08:40 Problem List - Problems (1) Status post section routine follow-up Code(s): Z39.2 - ENCOUNTER FOR ROUTINE FOLLOW-UP; Z98.891 - HISTORY OF UTERINE SCAR FROM PREVIOUS SURGERY (2) Monochorionic diamniotic twin gestation in third trimester Code(s): O30.033 - TWIN , MONOCHORIONIC/DIAMNIOTIC, THIRD TRIMESTER Assessment/Plan , Post Repeat C/section BTL , day#2 stable Anemia noted . Pain management continue will prefer stool softner
[2019-03-15] MEDS ORDERED: DOCUSATE SODIUM 100 MG CAPSULE (FP) PO PRN (06:10)
[2019-03-15] MEDS: PRENATAL VITAMINS W/ FOLIC ACID TABLET (FP) PO SCH (09:06)
[2019-03-15] MEDS: FERROUS SO4 325 MG TABLET (FP) PO SCH ×2 (09:06→18:32)
[2019-03-15 22:13] VITALS: BP 132/75
[2019-03-16] MEDS: SIMETHICONE 80 MG TAB.CHEW (FP) PO PRN ×4 (00:39→17:26)
[2019-03-16] MEDS: oxyCODONE HCL 5 MG TABLET PO PRN ×4 (00:39→17:26)
[2019-03-16] MEDS: IBUPROFEN 600 MG TABLET (FP) PO PRN ×4 (00:40→17:27)
--- NOTE | 2019-03-16 08:34 | PN ---
Post Progress Note - Subjective Subjective: Pain controlled. Ambulating w/o difficulty. No fevers/chills. Bottle feeding Post Day: 3 Type of Delivery: Repeat C/S Vital Signs: Vital Signs Temperature 98.3 F 03/15/19 22:00 Pulse Rate 90 03/15/19 22:00 Respiratory Rate 18 03/15/19 22:00 Blood Pressure 132/75 03/15/19 22:00 O2 Sat by Pulse Oximetry (%) 100 03/13/19 15:30 Uterus: Yes: Fundus below umbilicus Incision: Yes: Dressing dry and intact, Sutures intact Abdomen/GI: Yes: Abdomen soft, Passing flatus, Tolerating PO Lochia: Yes: Rubra Lochia, amount: Small Extremities: Yes: Calves non-tender Activity: Ambulating - Labs Labs: CBC WBC 13.3 K/mm3 (4.0-10.0) H 03/14/19 08:40 RBC 2.79 M/mm3 (3.60-5.2) L 03/14/19 08:40 Hgb 9.0 GM/dL (10.7-15.3) L 03/14/19 08:40 Hct 26.5 % (32.4-45.2) L D 03/14/19 08:40 MCV 95.2 fl (80-96) 03/14/19 08:40 MCH 32.3 pg (25.7-33.7) 03/14/19 08:40 MCHC 34.0 g/dl (32.0-36.0) 03/14/19 08:40 RDW 13.5 % (11.6-15.6) 03/14/19 08:40 Plt Count 167 K/MM3 (134-434) 03/14/19 08:40 MPV 9.9 fl (7.5-11.1) 03/14/19 08:40 Absolute Neuts (auto) 11.1 K/mm3 (1.5-8.0) H 03/14/19 08:40 Neutrophils % 83.5 % (42.8-82.8) H 03/14/19 08:40 Lymphocytes % 7.3 % (8-40) L D 03/14/19 08:40 Monocytes % 8.9 % (3.8-10.2) 03/14/19 08:40 Eosinophils % 0.2 % (0-4.5) 03/14/19 08:40 Basophils % 0.1 % (0-2.0) 03/14/19 08:40 Nucleated RBC % 0 % (0-0) 03/14/19 08:40 Problem List - Problems (1) Monochorionic diamniotic twin gestation in third trimester Code(s): O30.033 - TWIN , MONOCHORIONIC/DIAMNIOTIC, THIRD TRIMESTER Assessment/Plan 35yo s/p RLTCS, BTL Routine PP care OOB, ambulate Las reviewed, po iron Anticipate d/c to home by POD#4 Raudel Haywood MD
[2019-03-16] MEDS: FERROUS SO4 325 MG TABLET (FP) PO SCH (08:50)
[2019-03-16 08:57] LABS: BASO % 0.2 % (0-2.0); HEMATOCRIT 27.4 % (32.4-45.2); HEMOGLOBIN 9.4 GM/dL (10.7-15.3); LYMPH % 17.3 % (8-40); MCH 32.6 pg (25.7-33.7); MCHC 34.2 g/dl (32.0-36.0); MEAN CELL VOLUME 95.5 fl (80-96); MEAN PLT VOLUME 9.5 fl (7.5-11.1); MONO % 7.6 % (3.8-10.2); NEUT % 73.9 % (42.8-82.8); PLATELET COUNT 252 K/MM3 (134-434); RBC 2.87 M/mm3 (3.60-5.2); RDW 13.6 % (11.6-15.6)
--- NOTE | 2019-03-16 09:37 | DS ---
Physical Examination Vital Signs: Vital Signs Temperature 98.3 F 03/15/19 22:00 Pulse Rate 90 03/15/19 22:00 Respiratory Rate 18 03/15/19 22:00 Blood Pressure 132/75 03/15/19 22:00 O2 Sat by Pulse Oximetry (%) 100 03/13/19 15:30 Constitutional: Yes: Well Nourished, No Distress, Calm Eyes: Yes: WNL, Conjunctiva Clear, EOM Intact HENT: Yes: WNL, Atraumatic, Normocephalic Neck: Yes: WNL, Supple, Trachea Midline Cardiovascular: Yes: WNL, Regular Rate and Rhythm Respiratory: Yes: WNL, Regular, CTA Bilaterally Gastrointestinal: Yes: WNL, Normal Bowel Sounds Musculoskeletal: Yes: WNL Extremities: Yes: WNL Edema: No Integumentary: Yes: WNL Neurological: Yes: WNL, Alert, Oriented ...Motor Strength: WNL Psychiatric: Yes: WNL Labs: CBC, BMP 03/16/19 07:50 03/13/19 10:50 Discharge Summary Problems reviewed: Yes Reason For Visit: TWINS Current Active Problems Monochorionic diamniotic twin gestation in third trimester (Acute) Status post section routine follow-up (Acute) Status post repeat low transverse section (Acute) Hospital Course: Patient presented for a scheduled RLTCS, BTL She had an uncomplicated procedure She met all postoperative milestones She was discharged home on POD#3 Condition: Stable - Instructions Diet, Activity, Other Instructions: Regular Diet Follow up in 7 days for an incision check- March 22 Referrals: Sylvia Haywood MD [Staff Physician] - Disposition: HOME - Home Medications Comprehensive Discharge Medication List: Ambulatory Orders Famotidine [Pepcid] 20 mg PO ASDIR 10/19/18 Pyridoxine HCl (Vitamin B6) [Vitamin B-6] 50 mg PO BID PRN #10 tablet 10/19/18 One Daily Tablet 1 tab PO DAILY 11/20/18 Ferrous Sulfate [Feosol] 325 mg PO DAILY #30 tablet 03/16/19 Ibuprofen 600 mg PO Q6H PRN #30 tablet 03/16/19 Oxycodone HCl/Acetaminophen [Percocet 5-325 mg Tablet -] 1 - 2 tab PO Q6H PRN # 20 tab MDD 4 03/16/19
[2019-03-16] MEDS: PRENATAL VITAMINS W/ FOLIC ACID TABLET (FP) PO SCH (10:00)
[2019-03-16 11:04] VITALS: PULSE 79; TEMP 98.7
--- NOTE | 2019-03-20 16:12 | PATH ---
Surgical Pathology Report Patient Name: LOLIS ZHANG [facility]. Rec. 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 PLACENTA, SECTION: 1011 G DIAMNIOTIC DICHORIONIC FUSED DISC TWIN PLACENTA. ARBITRARILY DESIGNATED PLACENTA A, THIRD TRIMESTER PLACENTA WITH TRIVASCULAR UMBILICAL CORD AND UNREMARKABLE PLACENTAL MEMBRANES. ARBITRARILY DESIGNATED PLACENTA B, THIRD TRIMESTER PLACENTA WITH HYPERCOILED TRIVASCULAR UMBILICAL CORD (~7 COILS/10 CM) AND UNREMARKABLE PLACENTAL MEMBRANES. B. FALLOPIAN TUBE, PORTION, RIGHT, PARTIAL EXCISION: FULL LUMINAL PORTION OF UNREMARKABLE FALLOPIAN TUBE. C. FALLOPIAN TUBE, PORTION, LEFT, PARTIAL EXCISION: FULL LUMINAL PORTION OF UNREMARKABLE FALLOPIAN TUBE. Electronically Signed Diana Khan M.D. Gross Description A. Received in formalin labeled "placenta," is a 1011 g twin placenta comprised of 2 fused discs, by dividing membranes. The dividing membranes are rice and opaque. There is one clip marking the umbilical cord of arbitrarily designated placenta "A" and 2 clips marking the umbilical cord of arbitrarily designated placenta "B". Placenta "A" is 21.0 x 15.5 x 2.0 cm and placenta "B" is 18.5 x 13.0 x 2.5 cm. The attached membranes are rice, translucent with focal opacities and display focal circumarginate insertion. The umbilical cord of placenta "A" measures 34 cm in length and averages 1.2 cm in diameter. The cord inserts eccentrically, 6.5 cm to the nearest margin. No true knots or strictures are identified. Cut surface of the umbilical cord reveals 3 vessels. The surface is damon blue with minimal fibrin deposition and appropriate caliber vessel. The maternal surface is red-brown with focal defects. Sectioning reveals red-brown, spongy parenchyma. No lesions are identified. The umbilical cord of placenta "B" is 34 cm in length and averages 1.2 cm in diameter. The cord inserts eccentrically, 4 cm to the nearest margin. The umbilical cord is hypercoiled (averaging 7 coils per 10 cm). No true knots or strictures are identified. The cut surface of the umbilical cord reveals 3 vessels. The surface is rachel blue with minimal fibrin deposition and appropriate caliber vessels. The maternal surface is red-brown with focal defects. Sectioning reveals red-brown, spongy parenchyma. No lesions are identified. Parking Cashier sections are submitted in 7 cassettes as follows: 1-placenta "A" membrane roll and umbilical cord; 2-3-full thickness sections of placenta "A"; 4-dividing membrane; 5-placenta "B" membrane roll and umbilical cord; 6-7-full thickness sections of placenta "B". B. Received in formalin labeled "portion of right fallopian tube," is a 2.4 cm in length portion of fallopian tube. No fimbria are present. The outer surface is rice-rachel and smooth. Sectioning reveals an unremarkable lumen. Parking Cashier sections are submitted in one cassette. C. Received in formalin labeled "portion of left fallopian tube," is a 1.1 cm in length portion of fallopian tube. No fimbria are present. The outer surface is rice-rachel and smooth. Sectioning reveals an unremarkable lumen. Parking Cashier sections are submitted in one cassette. 03/17/2019 [facility]/17/2019
== END 2019-03-16 17:45 | disposition home or self-care (01) | DRG 540 ==
LOC: JDEL 10:00 → JLDR 10:24 → J3W 15:59
PROVIDERS: ADMIT Obstetrics & Gynecology; ATTEND Obstetrics & Gynecology
PROC: 10D00Z1 Extraction of Products of Conception, Low, Open Approach (ICD-10-PCS; principal; 2019-03-13)
PROC: 0UB70ZZ Excision of Bilateral Fallopian Tubes, Open Approach (ICD-10-PCS; 2019-03-13)
DX: O30.043 Twin pregnancy, dichorionic/diamniotic, third trimester (principal); O34.211 Maternal care for low transverse scar from previous cesarean delivery; N85.8 Other specified noninflammatory disorders of uterus; Z3A.38 38 weeks gestation of pregnancy; Z37.2 Twins, both liveborn; Z30.2 Encounter for sterilization
CPT/HCPCS: 36415; 80048; 80307; 85025; 85610; 85730; 86593; 86850; 86900; 86901; 88302-TC; 88307-TC